=== PATIENT | female | born 1985 | race Two or more races ===

== ENCOUNTER 2020-09-08 07:00 | Day surgery (SDC) | payer BC ==
[~2020-09-08] VITALS: Ht 175.3 cm; Wt 122.5 kg
[~2020-09-08 07:00] MED LIST: ATABEX PRENATAL1 TAB; PRENA-CAP CAPSU1 CAP
== END 2020-09-08 13:00 | disposition home or self-care (01) ==
LOC: CIR.AMB 07:00 → SEC-K 07:00 → O/R 07:00 → ER 07:00 → EDSTATUS 09:30 → SEC-K 10:16 → O/R 10:16 → CIR.AMB 13:00
PROVIDERS: ATTEND General Practice
DX: K35.890 Other acute appendicitis without perforation or gangrene (principal); Z20.828 Contact with and (suspected) exposure to other viral communicable diseases

== ENCOUNTER 2021-05-31 08:02 | Outpatient (CLI) | payer OTHER | END 2021-05-31 09:27 | disposition home or self-care (01) | LOC: PRENATAL 08:02 | PROVIDERS: ATTEND Obstetrics & Gynecology Maternal & Fetal Medicine | DX: O35.0XX1 Maternal care for (suspected) central nervous system malformation in fetus, fetus 1 (principal); O35.3XX1 Maternal care for (suspected) damage to fetus from viral disease in mother, fetus 1; O98.512 Other viral diseases complicating pregnancy, second trimester; O09.512 Supervision of elderly primigravida, second trimester; O10.012 Pre-existing essential hypertension complicating pregnancy, second trimester; O99.212 Obesity complicating pregnancy, second trimester; Z36.89 Encounter for other specified antenatal screening; Z3A.20 20 weeks gestation of pregnancy ==

== ENCOUNTER 2021-07-04 13:37 | Outpatient (CLI) | payer OTHER | END 2021-07-04 14:44 | disposition home or self-care (01) | LOC: PRENATAL 13:37 | PROVIDERS: ATTEND Obstetrics & Gynecology Maternal & Fetal Medicine | DX: O26.842 Uterine size-date discrepancy, second trimester (principal); O09.512 Supervision of elderly primigravida, second trimester; O10.012 Pre-existing essential hypertension complicating pregnancy, second trimester; O99.212 Obesity complicating pregnancy, second trimester; Z36.89 Encounter for other specified antenatal screening; Z3A.25 25 weeks gestation of pregnancy ==

== ENCOUNTER 2021-09-05 12:47 | Outpatient (CLI) | payer OTHER | END 2021-09-05 14:11 | disposition home or self-care (01) | LOC: PRENATAL 12:47 | PROVIDERS: ATTEND Obstetrics & Gynecology Maternal & Fetal Medicine | DX: O26.843 Uterine size-date discrepancy, third trimester (principal); O10.013 Pre-existing essential hypertension complicating pregnancy, third trimester; O99.213 Obesity complicating pregnancy, third trimester; O09.523 Supervision of elderly multigravida, third trimester; Z36.89 Encounter for other specified antenatal screening; Z3A.34 34 weeks gestation of pregnancy ==

== ENCOUNTER 2021-09-17 07:03 | Inpatient (IN) | payer OTHER ==
[~2021-09-17] VITALS: Ht 175.3 cm; Wt 2.7 kg
[2021-09-17] MEDS ORDERED: PRENATAL CAPLE1 EAC1 (09:37)
[2021-09-17] MEDS ORDERED: CHILDREN'S ASPI81 MG (09:38)
[2021-09-17] MEDS ORDERED: OSTERA TABLET1 EACH PO (09:38)
[2021-09-17] MEDS ORDERED: LABETALOL HCL200 MG PO (09:40)
== END 2021-09-21 14:37 | disposition home or self-care (01) | DRG 787 ==
LOC: LDR 07:03 → OB/GYN 09-18 09:03
PROVIDERS: ADMIT Obstetrics & Gynecology; ATTEND Obstetrics & Gynecology
PROC: 4A1HXFZ Monitoring of Products of Conception, Cardiac Rhythm, External Approach (ICD-10-PCS; 2021-09-17)
PROC: 10D00Z1 Extraction of Products of Conception, Low, Open Approach (ICD-10-PCS; principal; 2021-09-18 07:00)
DX: O76 Abnormality in fetal heart rate and rhythm complicating labor and delivery (principal); O10.02 Pre-existing essential hypertension complicating childbirth; O99.824 Streptococcus B carrier state complicating childbirth; Z3A.36 36 weeks gestation of pregnancy; Z37.0 Single live birth